=== PATIENT | male | born 1975 | race Two or more races ===

== ENCOUNTER 2024-09-16 09:11 | Inpatient (IN) | payer MEDICAID, SELFPAY ==
[2024-09-16] VITALS (14 sets, daily range): BP systolic 98–127; BP diastolic 65–79; PULSE 65–89; RESP 12–21; TEMP 35.9–37.1; O2SAT 93–98; BMI 23.5
--- NOTE | 2024-09-16 09:35 | EKG_ITS ---
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: : 1975 Requested By: ED Temporary Provider Order Number: [id number] Reading MD: ED Temporary Provider Measurements Intervals [place] Rate: 82 P: 54 HI: 193 QRS: 58 QRSD: 92 T: 34 QT: 360 QTc: 423 Interpretive Statements SINUS RHYTHM ST ELEVATION, CONSIDER ANTERIOR INJURY [MARKED ST ELEVATION W/O NORMALLY INFLECTED T WAVE IN V2-V5] ST ELEVATION, CONSIDER INFERIOR INJURY [MARKED ST ELEVATION W/O NORMALLY INFLECTED T WAVE IN II/aVF] ACUTE [place] Compared to ECG 09/16/2022 21:59:00 ST (T wave) deviation now present Myocardial infarct finding now present First degree AV block no longer present Early repolarization no longer present /store/S0/[id number]/[id number].pdf
--- NOTE | 2024-09-16 09:47 | PD.EDRME ---
Rapid Medical Screening Exam RME Arrival date/time: 09/16/24 09:11 48-year-old male with a history of hyperlipidemia, type 2 diabetes, hypertension presents to the emergency room with a chief complaint of 10 out of 10 sternal chest pain that radiates to the left shoulder x 1 day. I have greeted and performed a focused initial assessment of this patient. A comprehensive ED assessment and evaluation of the patient, analysis of all test results, and completion of the medical decision making process will be conducted by additional ED providers. Chief Complaint: Chest Pain Vital signs reviewed by provider: Yes
--- NOTE | 2024-09-16 09:56 | EDNOTE_ITS ---
ED Chest Pain RME/HPI General Chief Complaint: Chest Pain Stated Complaint: CHEST PAIN Time Seen by Provider: 09/16/24 09:51 Arrival date/time: 09/16/24 09:11 RME / HPI RME / HPI narrative: 09/16/24 09:11 48-year-old male with a history of hyperlipidemia, type 2 diabetes, hypertension presents to the emergency room with a chief complaint of 10 out of 10 sternal chest pain that radiates to the left shoulder x 1 day. I have greeted and performed a focused initial assessment of this patient. A comprehensive ED assessment and evaluation of the patient, analysis of all test results, and completion of the medical decision making process will be conducted by additional ED providers. This section includes all my notes and documentations, including HPI, PE, and ED course.? Rigo Haro MD HPI: 48 year old male with history of diabetes presents to the ED for evaluation of chest pain that began yesterday and progressively worsening. Described as aching in sensation that is located most to the center and left side of chest, rating 9/10 today. Accompanied by feeling short of breath. Reportedly had consulted his PCP in [place] yesterday and while in office had an EKG performed and sent to [facility]. States while at the [facility] he had labs and EKG performed however left before receiving any results. Denies any history of MS. Denies fevers, chills, sweats, abdominal pain, n/v. No other complaints. ROS: All negative except as documented in HPI. Physical Exam: General:? Alert and oriented.? No acute distress when remaining still.?? Eyes:? Conjunctivae and lids clear.? ENT:? No nasal congestion.? Neck:? Supple.? Heart:? RRR.? Lungs:? No respiratory distress.? Good air movement.? No rhonchi, wheezing, rales.?? Abdomen:? Soft and nontender.?? Legs:? No clubbing, cyanosis, edema.? Skin:? Warm and dry.?? Neuro:? Alert and oriented X 3.?? I reviewed all diagnostic test results. My interpretation of the EKG is?STEMI (confirmed by Dr. Mendenhall). Blood tests unremarkable. At this point, diagnoses include?STEMI. Treatment here included?Plavix and topical NTG and morphine and Lovenox. Patient took ASA 81 mg X 4 at home today. He remained stable. I discussed the case with our environmental conservation officer and our hospitalist.? About the presentation and exam and diagnostics and treatments here.? And need of further care in the hospital.? Will accept the patient. Rigo Haro MD Related Data Home Medications ?Medication ?Instructions ?Recorded ?Confirmed Unobtainable 10/12/22 10/12/22 Allergies Allergy/AdvReac Type Severity Reaction Status Date / Time No Known Allergies Allergy Verified 10/12/22 07:18 Review of Systems Review of Systems Systems Reviewed: All systems reviewed, normal except as documented Past Medical History Past Medical History CARDIAC: Positive Cardiac Disorders, Myocardial Infarction, Coronary Artery Disease, Hypercholesterolemia and Hypertension ENDOCRINE: Positive Diabetes Mellitus Type 2 PSYCHO/SOCIAL: Positive Anxiety OTHER HISTORY: Positive Hospitalization Social History SMOKING STATUS: Current some day smoker SUBSTANCE USE: former substance user and crack/cocaine ED Exam Narrative Physical exam: As noted in HPI Course Quality Measures none Orders Category Date Time Status COVID-19 Screening Questionnaire NOW Care 09/16/24 10:01 Active Decision to Admit X1 Care 09/16/24 10:01 Completed EKG (ED ONLY) *Do not use* NOW Care 09/16/24 09:35 Completed Consult to Cardiology Stat Cons 09/16/24 09:58 Ordered CCL heart cath LT ventricle Stat Exams 09/16/24 Ordered EKG (ED Only) Stat Exams 09/16/24 09:35 Draft XR chest 1V portable Stat Exams 09/16/24 09:46 Ordered B-Type Natriuretic Peptide Stat Lab 09/16/24 09:58 Completed CBC Stat Lab 09/16/24 09:58 Completed Comprehensive Metabolic Panel Stat Lab 09/16/24 09:58 Completed Drug Screen,Urine Stat Lab 09/16/24 09:47 Ordered LDH (Lactate Dehydrogenase) Stat Lab 09/16/24 09:58 Completed Magnesium Stat Lab 09/16/24 09:58 Completed Partial Thromboplastin Time Stat Lab 09/16/24 09:58 Completed Prothrombin Time with INR Stat Lab 09/16/24 09:58 Completed Troponin I Stat Lab 09/16/24 09:58 Completed Urinalysis Stat Lab 09/16/24 09:47 Ordered Clopidogrel [Plavix] Med 09/16/24 09:57 Discontinued 300 mg PO X1 ONE Metoprolol Tartrate [Lopressor] Med 09/16/24 09:56 Discontinued 25 mg PO X1 ONE Morphine Inj Med 09/16/24 09:57 Discontinued 2 mg IVP X1 ONE Morphine Inj Med 09/16/24 09:56 Discontinued 4 mg IVP X1 ONE Nitroglycerin Oint 2% [Nitro-paste Oint 2%] Med 09/16/24 09:56 Discontinued 1 inch TOP X1 ONE Vital Signs Vital signs: Vital Signs Temperature 98.7 F 09/16/24 09:59 Pulse Rate 82 09/16/24 09:59 Respiratory Rate 18 09/16/24 09:59 Blood Pressure 127/79 09/16/24 09:59 Pulse Oximetry (%) 95 09/16/24 09:59 Oxygen Delivery Method Room Air 09/16/24 09:59 Pulse ox is 95% on room air which is adequate. Chest Pain MDM Narrative MDM Narrative:: Patricia Thomas am scribing for and in the presence of Dr. Haro. Patient data External records reviewed:: [facility] previous records (I reviewed ED visit on 01/01/2023 for chest pain ) and EMS form Clinical information provided by:: patient Social determinants that could affect healthcare access:: none Patient has the following chronic illnesses:: Diabetes How is presenting disease/condition affected by chronic disease/condition?: exacerbated by Evaluation data The following diagnostics were reviewed and interpreted by me:: lab results and EKG tracing(s) (My interpretation of the EKG is: Sinus rhythm (82 bpm) with STEMI. Rigo Haro MD) Lab and/or radiology exams considered but not ordered:: None Interpretation Summary: ST elevation MS Medications / Prescriptions Medications or Prescriptions considered but not ordered:: None Medication administrations:: Medication Administration History Acetaminophen (Acetaminophen 325 Mg Tablet) 650 mg PO Q6H PRN PRN Reason: PAIN OR FEVER > 101 Stop: 10/16/24 10:01 Ondansetron HCl (Ondansetron Inj 2 Mg/Ml Inj 2 Ml) 4 mg IV Q6H PRN; Protocol PRN Reason: NAUSEA OR VOMITING Stop: 10/16/24 10:01 Sennosides (Senna Tablet) 1 tab PO QDAY PRN; Protocol PRN Reason: constipation Stop: 10/16/24 10:01 Discontinued Medications Atropine Sulfate (Atropine Sulf Inj 1 Mg/Ml Vial) Confirm Administered Dose 1 mg .ROUTE .STK-MED ONE Stop: 09/16/24 10:10 Bivalirudin (Bivalirudin Inj 250 Mg Vial) Confirm Administered Dose 250 mg IV .STK-MED ONE Stop: 09/16/24 10:11 Clopidogrel Bisulfate (Clopidogrel Bisulfate 75 Mg Tablet) 300 mg PO X1 ONE Stop: 09/16/24 09:58 Epinephrine HCl (Epinephrine Inj 0.1 Mg/Ml Syringe 10ml) Confirm Administered Dose 1 mg .ROUTE .STK-MED ONE Stop: 09/16/24 10:12 Fentanyl Citrate (Fentanyl Cit Inj 50 Mcg/Ml Amp 2ml) Confirm Administered Dose 100 mcg .ROUTE .[facility]-MED ONE Stop: 09/16/24 10:10 Flumazenil (Flumazenil Inj 0.1 Mg/Ml Vial 10 Ml) Confirm Administered Dose 1 mg .ROUTE .ST-MED ONE Stop: 09/16/24 10:11 Heparin Sodium (Porcine) (Heparin Sod Inj 1000 Unit/Ml Vial 10 Ml) Confirm Administered Dose 20,000 unit .ROUTE .ST-MED ONE Stop: 09/16/24 10:11 Sterile Water (Sterile Water) Confirm Administered Dose 10 mls @ ud .ROUTE .[facility]- MED ONE Stop: 09/16/24 10:11 Nitroglycerin/Dextrose (Nitroglycerin In D5w Ivpb) Confirm Administered Dose 50 mg in 250 mls @ ud IV .ST-MED ONE Stop: 09/16/24 10:12 Lidocaine HCl (Lidocaine Inj Pf 1% 30 Ml Vial) Confirm Administered Dose 30 ml .ROUTE .ST-MED ONE Stop: 09/16/24 10:11 Metoprolol Tartrate (Metoprolol Tartrate 25 Mg Tablet) 25 mg PO X1 ONE Stop: 09/16/24 09:57 Last Admin: 09/16/24 10:06 Dose: 25 mg Documented By: SUZIE Midazolam HCl (Midazolam Inj 1 Mg/Ml Vial 2 Ml) Confirm Administered Dose 2 mg .ROUTE .STK-MED ONE Stop: 09/16/24 10:10 Morphine Sulfate (Morphine Sulf Inj 10 Mg/Ml Vial) 4 mg IVP X1 ONE Stop: 09/16/24 09:57 Morphine Sulfate (Morphine Sulf Inj 10 Mg/Ml Vial) 2 mg IVP X1 ONE Stop: 09/16/24 09:58 Naloxone HCl (Naloxone Inj 0.4 Mg/Ml Vial) Confirm Administered Dose 0.4 mg .ROUTE .STK-MED ONE Stop: 09/16/24 10:10 Nitroglycerin (Nitroglycerin Oint 2% 1 Inch Packet) 1 inch TOP X1 ONE Stop: 09/16/24 09:57 Last Admin: 09/16/24 10:04 Dose: 1 inch Documented By: SUZIE Phenylephrine HCl (Phenylephrine Inj In Ns 100 Mcg/Ml 10 Ml Syringe) Confirm Administered Dose 1,000 mcg .ROUTE .STK-MED ONE Stop: 09/16/24 10:11 Verapamil HCl (Verapamil Inj 2.5 Mg/Ml Vial 2 Ml) Confirm Administered Dose 5 mg .ROUTE .STK-MED ONE Stop: 09/16/24 10:11 Patient given Plavix, Metoprolol, Morphine, Nitro in the ER Consultations Consultation(s) initiated? (list below): Yes Consultation #1 (Physician, Specialty, Details): I spoke with environmental conservation officer Dr. Mendenhall. Time: 09:56 Consultation #2 (Physician, Specialty, Details): I spoke with resident working with Dr. Gomez regarding admission. Discussed patients PMHx, HPI, ED course, exam findings, EKG, and environmental conservation officer recommendation. Time: 10:00 Diagnosis Chest Pain Differential Diagnosis: pneumothorax, stable angina, unstable angina pectoris, atypical chest pain, st elevation myocardial infarction, costochondritis and chest pain Most likely diagnosis given after review of the tests above:: ST elevation MS Admission Indicated Admission indicated?: indicated Explain why admission is indicated or not indicated:: STEMI Admission Request Was there a request for admission?: Yes Admission Attestation Admission request attestation: Discussed case with Hospitalist service regarding admission. Discussed patients ED course, exam findings, labs, and radiology results. The Hospitalist [agrees,declines] to accept the patient for admission. Disposition Plan Disposition Plan: Admit Discharge Plan Plan Patient Disposition: Admit Acute Care w/in Hospital Problem List Clinical Impression: ST elevation (STEMI) myocardial infarction
--- NOTE | 2024-09-16 10:01 | PC.NURSE ---
PT ARRIVES THROUGH TRIAGE [facility], AMBULATORY. REPORTS HE BEGAN HAVING CP YESTERDAY WAS SENT TO [facility] BY HIS PCP, BUT LEFT EARLY PRIOR TO DIAGNOSIS. COMES IN TODAY WITH CONTINUED CP, EKG SHOWED ACUTE IN. PROVIDER AT BEDSIDE
[2024-09-16] MEDS: NITROGLYCERIN OINT 2% 1 INCH PACKET TOP (10:04)
[2024-09-16] MEDS: METOPROLOL TARTRATE 25 MG TABLET PO ×2 (10:06→17:57)
--- NOTE | 2024-09-16 10:08 | PC.NURSE ---
Patient taken to laborer car barn.
[2024-09-16 10:11] LABS: Basophils % (Auto) 1 % (0-2.5); Eosinophils # (Auto) 0.2 Thou/mm3 (0.0-0.5); Eosinophils % (Auto) 4 % (0-10); Hematocrit 42.7 % (41.0-53.0); Immature Granulocytes % (Auto) 0 % (0-0); Immature Granulocytes Auto 0.01 Thou/mm3 (0.00-0.00); Lymphocytes # (Auto) 1.7 Thou/mm3 (1.0-4.8); Lymphocytes % (Auto) 27 % (10-50); Mean Corpuscular HGB Conc 32.8 g/dl (31.0-37.0); Mean Corpuscular Hemoglobin 27.2 pg (25.0-35.0); Mean Corpuscular Volume 83 fL (80-100); Monocytes # (Auto) 0.4 Thou/mm3 (0.0-0.8); Monocytes % (Auto) 6 % (0-12); Neutrophils % (Auto) 62 % (37-80); Nucleated Red Blood Cell % 0 /100 WBC (0); Platelet Count 320 Thou/mm3 (140-440); RDW Standard Deviation 40.5 fL (35.1-43.9); Red Blood Count 5.14 Miln/mm3 (4.50-5.90); White Blood Count 6.4 Thou/mm3 (3.8-10.6)
[2024-09-16 10:26] LABS: Partial Thromboplastin Time 26.5 Seconds (22.0-36.0); Prothrombin Time 10.5 Seconds (9.0-12.2)
[2024-09-16 10:40] LABS: Alanine Aminotransferase 12 U/L (10-49); Albumin, Serum 4.9 gm/dL (3.5-5.0); Albumin/Globulin Ratio 1.7 (1.2-2.2); Alkaline Phosphatase 105 U/L (46-116); Anion Gap 9 (7-16); Aspartate Amino Transferase 11 U/L (0-34); BUN/Creatinine Ratio 41 Ratio (12-20); Bilirubin,Total 0.3 mg/dL (0.3-1.2); Blood Urea Nitrogen 33 mg/dL (9-23); Calcium 10.3 mg/dL (8.3-10.6); Calcium (Corrected) 10.3 mg/dL (8.5-10.1); Carbon Dioxide 25.4 mMol/L (20.0-31.0); Chloride 104 mMol/L (98-107); Creatinine (Component) 0.8 mg/dL (0.6-1.3); Estimated Creatinine Clearance 134.1 mL/min (>60); Globulin 2.9 gm/dL (2.3-3.5); Glucose 110 mg/dL (74-106); LDH (Lactate Dehydrogenase) 170 U/L (120-246); Magnesium 2.1 mg/dL (1.6-2.6); Osmolality,Calculated 283 (275-295); Potassium 4.1 mMol/L (3.4-5.1); Sodium 138 mMol/L (136-145); Total Protein 7.8 gm/dL (5.7-8.2); Troponin I < 0.020 ng/mL (0.0-0.045); eGFR > 60 See Note
--- NOTE | 2024-09-16 10:41 | ESOP_ITS ---
Cardiac Cath Procedure Procedure Narrative date of the procedure 09/16/2024 Title of the procedure 1. Left heart catheterization 2. Left coronary angiogram 3. Right coronary angiogram 4. Left ventriculogram 5. Conscious sedation 6. Radiographic interpretation supervision 7. Ultrasound guidence for Right radial access Indication for the procedure This is a 48-year-old gentleman with past medical history of borderline hypertension Patient was seen in the emergency room with chest pain Initial EKG shows ST elevations in the inferior lead STEMI alert was called patient was taken to the Occupational Therapy Professor Procedure This is done in the cardiac lab under continuous electrocardiographic monitoring Intermittent blood pressure monitoring right radial arterial access obtained using modified Seldinger technique 6 Romanian radial sheath was placed under ultrasound guidence TIG catheter was used for selective injection of the Left coronary artery TIG cather was used for selective injection of the Right coroanry artery TIG cather was used for LV gram Findings Hemodynamics Left ventricular systolic function is 55% Left ventricular end-diastolic pressure is 18 mmHg Gradient across the aortic valve is 0 mm gradient Coronary anatomy Right dominance Left main coronary artery is normal Left anterior descending artery is mid segment shows possible myocardial bridging Diagonal vessel is luminal irregularities Left circumflex artery is normal Obtuse marginal vessel is luminal regularities Right coronary artery is normal Posterior descending artery is normal Conclusion No significant coronary lesion Continue medical management Recommendation Medical management to continue
[2024-09-16 10:48] LABS: B-Type Natriuretic Peptide < 20 pg/mL (0-100)
--- NOTE | 2024-09-16 14:17 | ESHP_ITS ---
<Statement entered by Duarte Berger MD - 09/16/24 15:51> Patient Underweight cath, by Dr Mendenhall which showed mid segment possible mycardial bridging . will continue current treatment as per cardiology , stable to DC tomorrow. I discussed with and supervised my co-resident involved in the care of this patient. I agree with the assessment and plan as documented above. Duarte Berger,PGY-3 Disclaimer: Despite multiple revisions, due to the dictation software being used, the document below may not be free of grammatical errors including phonetic/typographic errors. However, this does not deter from our commitment to providing health care in the patient's best interest in mind. Documentation for date of: 09/16/24 HPI History of Present Illness Chief complaint: chest pain History of present illness: 48-year-old male with past medical history of hypertension, DM2, prior NV (2018), prior cocaine use, and hyperlipidemia was admitted to hospital on 09/16/2024 after coming to the ED with chest pain and EKG showing ST elevations therefore require him to go straight to heart cath. On assessment patient stated that he chest pain started yesterday and that he had shortness of breath as well. He described this chest pain as sharp and localized on the left side chest, but did not radiate anywhere. He stated he took 4 chewable aspirin during that time and then headed to a health clinic in his hometown will later on referred him to the ER. Patient went to the ER in [place] and he had a misunderstanding as they told him to wait in the lobby, but patient left thinking that he was already done with fall lab work and testing. He stated that again his chest pain continued this morning therefore he decided to call the ambulance and came to the ER. Patient stated that before everything started he was having a burger around 10 AM yesterday and that the woman who prepares his burger had put something on his program which he thinks was a drug. He states that after eating the burger he felt very anxious as well as with uncontrollable rage and therefore he went to the health clinic at this time. He denied taking any cocaine or any other drugs in the past few years. He also mentioned that he has had to prior heart caths in the past. Patient was taken to the heart cath directly from the ER given that his EKG did not show ST elevations in multiple leads. Heart cath did not reveal any occlusion and only showed LAD myocardial bridging. ED course: Initially patient came in normotensive and afebrile. Initial labs were unremarkable. Initial imaging included EKG which showed ST elevation in lead II, aVF, V5 and V6. PMH: As above Social Hx: Admits to smoking around 1/4 pack/day, denies any drugs, admits social drinking Surgical Hx: None as per patient FMH: States that he has multiple half-brothers who have had MIs at the age of 60s, but no other relevant medical history. Review of Systems Review of Systems Narrative Review of Systems: Constitutional: Denies sweats, Denies weight loss/gain, Denies fever, Denies chills. HEENT: Denies hearing loss, Denies ear pain, Denies postnasal drip, Denies double vision, Denies blurry vision. Respiratory: Admits shortness of breath, Denies cough, Denies wheezing. Cardiovascular: Admits chest pain, Denies palpitations, Denies sudden loss of consciousness. GI: Denies blood in stool, Denies constipation, Denies abdominal pain, Denies difficulty swallowing, Denies nausea or vomit. : Denies urinary incontinence, Denies pain while urinating, Denies increased urinary frequency. MSK: Denies joint pain, Denies joint swelling, Denies numbness. Skin: Denies rash, Denies itching, Denies easy bruising. Neuro: Denies headaches, Denies dizziness, Denies seizures. Past Medical History Past Medical History CARDIAC: Positive Cardiac Disorders, Myocardial Infarction, Coronary Artery Disease, Hypercholesterolemia and Hypertension ENDOCRINE: Positive Diabetes Mellitus Type 2 PSYCHO/SOCIAL: Positive Anxiety OTHER HISTORY: Positive Hospitalization Social History SMOKING STATUS: Current some day smoker SUBSTANCE USE: former substance user and crack/cocaine Exam Vital Signs Temp Pulse Resp BP Pulse Ox O2 Del Method 97.3 F 70 17 106/73 97 Room Air 09/16/24 13:49 09/16/24 13:49 09/16/24 13:49 09/16/24 13:49 09/16/24 13:49 09/16/24 13:49 Narrative Exam General: A/O x3, no acute distress, thin Eyes: PERRL, EOMI. Anicteric, vision grossly intact. Ears: No ear pain, no ear discharge, Hearing grossly intact. Nose: No nasal discharge. Mouth/Throat: Dry mucous membranes, no redness, no lesions. Neck: Neck supple, non-tender, no cervical lymphadenopathy. Lungs: Clear SOL to auscultation and percussion, No accessory muscle use. Cardio: Normal S1/S2, regular rhythm, no murmurs, no JVD Abdomen: Soft, non-tender, no palpable masses, peristalsis present, no guarding or rebound. Extremities: Symmetrical, no significant deformities, no peripheral edema , non-tender, peripheral pulses presents. Skin: No rashes, no lesions, warm to touch. Neuro: No focal neurological deficits. motor and sensory intact Psych: Cooperative, appropriate mood and effect. Results: Labs 09/17/24 04:40 09/17/24 04:40 Labs: Short CBC 09/16/24 Range/Units 09:58 WBC 6.4 (3.8-10.6) Thou/mm3 Hgb 14.0 (13.5-16.0) g/dL Hct 42.7 (41.0-53.0) % Plt Count 320 (140-440) Thou/mm3 BMP 09/16/24 09:58 Sodium 138 Potassium 4.1 Chloride 104 Carbon Dioxide 25.4 BUN 33 H Creatinine 0.8 Glucose 110 H Calcium 10.3 Cardiac Enzymes 09/16/24 Range/Units 09:58 Troponin I < 0.020 (0.0-0.045) ng/mL Liver Function 09/16/24 Range/Units 09:58 Total Bilirubin 0.3 (0.3-1.2) mg/dL AST 11 (0-34) U/L ALT 12 (10-49) U/L Alkaline Phosphatase 105 (46-116) U/L Albumin 4.9 (3.5-5.0) gm/dL Quality Measures Quality Measures none Medications Home Medications and Allergies Home Medications ?Medication ?Instructions ?Recorded ?Confirmed ?Type Unobtainable 10/12/22 10/12/22 History Allergies Allergy/AdvReac Type Severity Reaction Status Date / Time No Known Allergies Allergy Verified 10/12/22 07:18 Visit Medications Acetaminophen (Acetaminophen 325 Mg Tablet) 650 mg PO Q6H PRN PRN Reason: PAIN OR FEVER > 101 Stop: 10/16/24 10:01 Ondansetron HCl (Ondansetron Inj 2 Mg/Ml Inj 2 Ml) 4 mg IV Q6H PRN; Protocol PRN Reason: NAUSEA OR VOMITING Stop: 10/16/24 10:01 Sennosides (Senna Tablet) 1 tab PO QDAY PRN; Protocol PRN Reason: constipation Stop: 10/16/24 10:01 Discontinued Medications Clopidogrel Bisulfate (Clopidogrel Bisulfate 75 Mg Tablet) 300 mg PO X1 ONE Stop: 09/16/24 09:58 Last Admin: 09/16/24 11:57 Dose: Not Given Metoprolol Tartrate (Metoprolol Tartrate 25 Mg Tablet) 25 mg PO X1 ONE Stop: 09/16/24 09:57 Last Admin: 09/16/24 10:06 Dose: 25 mg Morphine Sulfate (Morphine Sulf Inj 10 Mg/Ml Vial) 4 mg IVP X1 ONE Stop: 09/16/24 09:57 Morphine Sulfate (Morphine Sulf Inj 10 Mg/Ml Vial) 2 mg IVP X1 ONE Stop: 09/16/24 09:58 Last Admin: 09/16/24 11:57 Dose: Not Given Nitroglycerin (Nitroglycerin Oint 2% 1 Inch Packet) 1 inch TOP X1 ONE Stop: 09/16/24 09:57 Last Admin: 09/16/24 10:04 Dose: 1 inch Assessment & Plan Plan 48-year-old male with past medical history of hypertension, DM2, prior NV (2018), prior cocaine use, and hyperlipidemia was admitted to hospital on 09/16/2024 for STEMI. #STEMI rule out #Hx of NV ?Patient came in with complaints of chest pain that started yesterday after apparently ingesting an unknown substance. ?DDx NV versus vasospasm ? EKG that showed ST elevations in lead II, aVF, V5 and V6. ?Patient's troponins were negative at less than 0.02 ?Heart cath done today by production line technician revealed no coronary artery disease and only revealed LAD myocardial bridging. ?Patient received loading dose of Plavix in the ED as well as morphine and nitroglycerin. Plan: ?Order U tox ?Will observe patient for now as there is no need for any aspirin or Plavix at this time and plan for possible discharge in the next 24 hours. ?Cardiology consulted and appreciate recommendations ? Will continue to monitor #Hx of DM2 ? Glucose 110 today Plan: ?A1c for morning ? ISS ? Accu-Cheks and hypokalemia protocol ordered ? Will continue to monitor #Hx of hypertension ? Patient's blood pressure has been well-controlled today ? Will not start any antihypertensive medication at this time Disposition: Patient admitted to telemetry post heart cath, possible DC tomorrow . Diet: Cardiac/low carb GI prophylaxis: not indicated DVT prophylaxis: SCDs Code: Full Case disclosed with Attending Dr. Fowler and My senior Dr. Berger PGY3. Jose Parker PGY1 Attending Provider Attestation/Addendum I have examined the patient, reviewed labs and imaging findings, discussed the case with the resident(s), and reviewed entered orders. I agree with the plan of care as outlined in this note, with these additional summaries/recommendations: Patient seen at bedside. Patient presented to [facility] emergency department on 09/16/2024 with chief complaint of chest pain. In the emergency department, EKG was obtained which revealed ST elevation in leads II and aVF as well as lateral leads. Heart alert was called in the emergency department, cardiology was consulted and patient was taken immediately to Chief Substation Operator. Heart catheterization did not reveal any significant stenosis but did reveal possible LAD myocardial bridging. EF 55%. Etiology for chest pain secondary to myocardial bridging versus noncardiac versus possible coronary vasospasm. Patient does have history of remote substance use and urine toxicology pending. Patient was given antiplatelet therapy in the emergency room although since no significant stenosis we will discontinue. We will monitor patient on telemetry for any further episodes of chest pain. If no further episodes and morning labs are stable then patient can likely be discharged in the next 24 to 48 hours. Patient updated on the plan and in agreement. Dr. Gomez
--- NOTE | 2024-09-16 17:37 | EKG_ITS ---
[facility] Test Date: 2024-09-16 Pat Name: KATHIA MENDIETA Department: Room: S263A Gender: Male Strategic Planning Director: [id number] : 1975 Requested By: Ramu Cunha Order Number: [id number] Reading MD: Ramu Cunha Measurements Intervals [place] Rate: 75 P: 56 [place]: 222 QRS: 71 QRSD: 104 T: 55 QT: 388 QTc: 435 Interpretive Statements SINUS RHYTHM WITH FIRST DEGREE AV BLOCK EARLY REPOLARIZATION Compared to ECG 09/16/2024 09:44:55 First degree AV block now present Early repolarization now present ST (T wave) deviation no longer present Myocardial infarct finding no longer present /[id number]
--- NOTE | 2024-09-16 17:38 | ECHO_ITS ---
Transthoracic Echo Report Ht (in): 74 Wt (lb): 182 Exam Location: Portable Status: Inpatient Lace Burn Out Tender: Shari Arevalo Indications: Procedure Performed: BP: 93 / 67 HR: 71 Technical Quality: Fair MEASUREMENTS (Male / Female) Normal Values 2D ECHO LV Diastolic Diameter PLAX 4.1 cm 4.2 - 5.9 / 3.9 - 5.3 cm LV Systolic Diameter PLAX 3.0 cm IVS Diastolic Thickness 1.0 cm 0.6 - 1.0 / 0.6 - 0.9 cm LVPW Diastolic Thickness 1.0 cm 0.6 - 1.0 / 0.6 - 0.9 cm LV Relative Wall Thickness 0.5 LVOT Diameter 2.1 cm LA Volume Index 22.9 cm?/m? 16 - 28 cm?/m? Ascending Aorta Diameter 3.2 cm M-MODE Aortic Root Diameter MM 3.3 cm LA Systolic Diameter MM 3.8 cm LA Ao Ratio MM 1.2 AV Cusp Separation MM 2.1 cm DOPPLER AV Peak Velocity 118.0 cm/s AV Peak Gradient 5.6 mmHg AV Mean Gradient 3.0 mmHg AV Velocity Time Integral 28.1 cm LVOT Peak Velocity 100.0 cm/s LVOT Peak Gradient 4.0 mmHg LVOT Velocity Time Integral 24.2 cm LVOT Cardiac Index 2866.6 cm?/min?m? AV Area Cont Eq vti 3.0 cm? AV Area Cont Eq pk 2.9 cm? MV Peak Velocity 87.5 cm/s MV Peak Gradient 3.1 mmHg MV Mean Velocity 59.8 cm/s MV Mean Gradient 2.0 mmHg MV Area PHT 3.5 cm? Mitral E Point Velocity 73.2 cm/s Mitral A Point Velocity 63.1 cm/s Mitral E to A Ratio 1.2 LV E' Lateral Velocity 14.4 cm/s Mitral E to LV E' Lateral Ratio 5.1 LV E' Septal Velocity 8.8 cm/s Mitral E to LV E' Septal Ratio 8.3 FINDINGS Left Ventricle Normal left ventricular size, wall thickness, systolic function with no obvious regional wall motion abnormalities. The ejection fraction is visually estimated at 50-55 %. Right Ventricle The right ventricle is normal in size and systolic function. Left Atrium The left atrium is normal by two-dimensional, color flow and Doppler imaging with no structural abnormalities, no thrombus formation present. Right Atrium The right atrium is normal by two-dimensional imaging, color flow and Doppler imaging with no struct ural abnormalities, no thrombus formation present. Atrial Septum The interatrial septum appears normal with no evidence of a shunt. Aorta The aorta is normal by two-dimensional, color flow and Doppler interrogation. Mitral Valve The mitral valve is normal by two-dimensional, color flow and Doppler interrogation. There is trace mitral valve regurgitation. Aortic Valve The aortic valve is trileaflet and normal by two-dimensional, color flow and Doppler interrogation. There is no significant aortic valve regurgitation. Tricuspid Valve The tricuspid valve is normal by two-dimensional, color flow and Doppler interrogation. There is tra ce tricuspid valve regurgitation. Pulmonic Valve There is no significant pulmonic valve regurgitation. Vessels The pulmonary artery appears normal. The inferior vena cava pulmonary and hepatic veins appear melissa l. Pericardium The pericardium is normal by two-dimensional imaging. There is no significant pericardial effusion. CONCLUSIONS Indication: Chest pain Normal LV size and function. Estimated EF 55-60%. Normal diastolic function. Normal RV size and function. Trace MR, TR. Yrn Prater (Electronically Signed) Final Date: 17 September 2024 18:45
--- NOTE | 2024-09-16 17:38 | XR_ITS ---
Examination: AP chest single view Technique one AP portable upright chest single view Exam date and time: September 16, 2024 1749 hours Comparison January 01, 2023 INDICATIONS: Chest pain today. FINDINGS: Normal heart size No pneumonia or pulmonary edema Moderate osteopenia IMPRESSION: No interval pneumonia or pulmonary edema
[2024-09-16] MEDS: MORPHINE SULF INJ 10 MG/ML VIAL 2 MG IVP (17:57)
--- NOTE | 2024-09-16 18:05 | PD.RESEVENT ---
Documentation for date of: 09/16/24 Event Note Event Note: Around 5:40 PM rapid response team was called because of chest pain 06/18. He reported the pain was similar to what he presented with, but was not radiating as before. His pain was pressure type in the retrosternal area. Boiler Operators Supervisor Dr. Mendenhall was contacted by phone, and he recommended morphine, after which the pain started improving. The patient was also started on metoprolol to tartrate 25 mg twice daily. EKG was still significant for STEMI similar to 1 done during presentation. Chest x-ray was clear as interpreted by me. CMP, electrolytes and troponins were ordered. Will follow-up on labs. The patient was also started on morphine 2 mg every 4 hourly as needed for severe pain. The patient's management plan was discussed with my attending physician MD Alistair Kang MD, PGY2
--- NOTE | 2024-09-16 18:19 | PC.NURSE ---
1540 TANK TRUCK OPERATOR called for left sided non radiating pain to chest, 2 mg morphine given, Chest xray 1V ordered, Metroprolol 25 mg given, EKG ordered. Patients pain in currently 10. Vital signs stable, will continue to monitor.
[2024-09-16 18:30] LABS: Troponin I 0.057 ng/mL (0.0-0.045)
--- NOTE | 2024-09-16 23:19 | PC.RT ---
Responded to Rapid Response EKG done, RT DC post EKG.
[2024-09-17] VITALS (9 sets, daily range): BP systolic 93–124; BP diastolic 59–84; PULSE 69–91; RESP 14–20; TEMP 36–36.3; O2SAT 94–98; BMI 24.8
[2024-09-17 00:38] LABS: Collection Type, Urine Clean Catch; Squamous Epithelial Cell,Urine 0 /hpf (0-5)
[2024-09-17 01:08] LABS: Bilirubin,Urine Negative (Negative); Blood,Urine Negative (Negative); Clarity,Urine Clear (Clear/Hazy); Color,Urine Lt-Yellow (Lt Yel-Yel); Glucose, Urine 4+ (Negative); Ketones,Urine Negative (Negative); Leukocyte Esterase,Urine Negative (Negative); Nitrite,Urine Negative (Negative); PH,Urine 5.5 (5.0-7.0); Protein,Urine Negative (Neg - Trace); RBC,Urine 1 /hpf (0-3); Specific Gravity,Urine 1.044 (1.001-1.035); Urobilinogen,Urine Negative mg/dL (0.0-1.0); WBC,Urine < 1 /hpf (0-5)
[2024-09-17 01:16] LABS: Amphetamine/Methamp Scrn,U Positive (Negative); Barbiturate Screen,Urine Negative (Negative); Benzodiazepines Screen,Urine Positive (Negative); Benzoylecgonine Screen, Ur Negative (Negative); Fentanyl Screen,Urine Positive (Negative); Opiate Screen,Urine Positive (Negative); THC Screen,Urine Negative (Negative)
[2024-09-17 06:16] LABS: Basophils % (Auto) 1 % (0-2.5); Eosinophils # (Auto) 0.2 Thou/mm3 (0.0-0.5); Eosinophils % (Auto) 4 % (0-10); Hematocrit 36.1 % (41.0-53.0); Hemoglobin 12.5 g/dL (13.5-16.0); Immature Granulocytes % (Auto) 0 % (0-0); Immature Granulocytes Auto 0.01 Thou/mm3 (0.00-0.00); Lymphocytes % (Auto) 38 % (10-50); Mean Corpuscular HGB Conc 34.6 g/dl (31.0-37.0); Mean Corpuscular Volume 81 fL (80-100); Monocytes # (Auto) 0.5 Thou/mm3 (0.0-0.8); Monocytes % (Auto) 9 % (0-12); Neutrophils # (Auto) 2.5 Thou/mm3 (1.8-7.7); Neutrophils % (Auto) 49 % (37-80); Nucleated Red Blood Cell % 0 /100 WBC (0); Platelet Count 277 Thou/mm3 (140-440); RDW Standard Deviation 38.5 fL (35.1-43.9); Red Blood Count 4.46 Miln/mm3 (4.50-5.90); White Blood Count 5.2 Thou/mm3 (3.8-10.6)
[2024-09-17 07:02] LABS: Glucose Estimated Average 134 mg/dL (80-131); Hemoglobin A1C 6.3 % Hgb (4.8-6.0)
[2024-09-17 07:16] LABS: Alanine Aminotransferase 9 U/L (10-49); Albumin, Serum 4.1 gm/dL (3.5-5.0); Albumin/Globulin Ratio 1.6 (1.2-2.2); Alkaline Phosphatase 78 U/L (46-116); Anion Gap 7 (7-16); Aspartate Amino Transferase < 8 U/L (0-34); BUN/Creatinine Ratio 36 Ratio (12-20); Bilirubin,Total 0.4 mg/dL (0.3-1.2); Blood Urea Nitrogen 25 mg/dL (9-23); Calcium 9.2 mg/dL (8.3-10.6); Calcium (Corrected) 9.2 mg/dL (8.5-10.1); Carbon Dioxide 26.9 mMol/L (20.0-31.0); Cardiac Risk Estimate 3.8 RATIO (4.0-6.7); Chloride 104 mMol/L (98-107); Cholesterol 130 mg/dL (132-200); Creatinine (Component) 0.7 mg/dL (0.6-1.3); Estimated Creatinine Clearance 153.3 mL/min (>60); Globulin 2.5 gm/dL (2.3-3.5); Glucose 105 mg/dL (74-106); HDL Cholesterol 34 mg/dL (40-60); LDL Cholesterol,Calculated 59 mg/dL (0-130); Osmolality,Calculated 280 (275-295); Phosphorous 4.5 mg/dL (2.4-5.1); Potassium 4.1 mMol/L (3.4-5.1); Sodium 138 mMol/L (136-145); Total Protein 6.6 gm/dL (5.7-8.2); Triglycerides 186 mg/dL (30-150); eGFR > 60 See Note
[2024-09-17] MEDS: MORPHINE SULF INJ 10 MG/ML VIAL 2 MG IVP (12:07)
--- NOTE | 2024-09-17 14:34 | PC.SS ---
Patient is alert/oriented. He resides with his brother. Patient is independent with ADL's. No DME. He was admitted for NStemi. Patient resides in [place] and is expected to return. He states he follows up at the [facility]. They sent him to hospital for cardiac issues. Patient states he's had a referral to see a Cardiolgist 4 months ago but missed appt. Advised to contact primary care physician to re send referral. Patient states his pharmacy is at the [facility] as well. His friend, Dariel, is his alt medical decision maker. His brother is Faroese speaking only and patient did not want him listed. He states his friend will provide information to his brother in the event of any emergency. Patient may be discharged home today if cleared by Cardiology. D/c address: [phone], [place] Patient will need transportation home. Uber/Taxi
--- NOTE | 2024-09-17 14:44 | ESPR_ITS ---
Documentation for date of: 09/17/24 Subjective Subjective Interval history: Patient seen at bedside this morning. Patient had a rapid response later on yesterday afternoon due to chest pain. Cardiology was consulted at this time and he recommended to give patient morphine 2 mg every 4 hour as needed. Patient's echo was taken today, but we are still pending official report. Patient again was complaining of chest pain and morphine was given which improved his symptoms. As per cardiology patient is stable to be discharged home, but will monitor overnight. Started diltiazem 120mg qday. Exam Vital Signs Temp Pulse Resp BP Pulse Ox O2 Del Method 97.3 F 69 20 119/62 98 Room Air 09/17/24 12:00 09/17/24 12:00 09/17/24 12:00 09/17/24 12:00 09/17/24 12:00 09/17/24 12:00 Narrative Exam General: A/O x3, no acute distress, thin Eyes: PERRL, EOMI. Anicteric, vision grossly intact. Ears: No ear pain, no ear discharge, Hearing grossly intact. Nose: No nasal discharge. Mouth/Throat: Dry mucous membranes, no redness, no lesions. Neck: Neck supple, non-tender, no cervical lymphadenopathy. Lungs: Clear SOL to auscultation and percussion, No accessory muscle use. Cardio: Normal S1/S2, regular rhythm, no murmurs, no JVD Abdomen: Soft, non-tender, no palpable masses, peristalsis present, no guarding or rebound. Extremities: Symmetrical, no significant deformities, no peripheral edema , non-tender, peripheral pulses presents. Skin: No rashes, no lesions, warm to touch. Neuro: No focal neurological deficits. motor and sensory intact Psych: Cooperative, appropriate mood and effect. Objective Labs 09/18/24 04:09 09/18/24 04:09 Labs: Laboratory Results - last 24 hr 09/16/24 09/17/24 09/17/24 17:39 00:18 04:40 WBC 5.2 RBC 4.46 L Hgb 12.5 L Hct 36.1 L MCV 81 MCH 28.0 MCHC 34.6 RDW Std Deviation 38.5 Plt Count 277 D Neut % (Auto) 49 Lymph % (Auto) 38 [place] % (Auto) 9 Eos % (Auto) 4 Baso % (Auto) 1 Neut # (Auto) 2.5 Lymph # (Auto) 2.0 [place] # (Auto) 0.5 Eos # (Auto) 0.2 Baso # (Auto) 0.0 Immature Gran # (Auto) 0.01 H Absolute Nucleated RBC 0.00 Immature Gran % 0 Nucleated RBC % 0 Sodium 138 Potassium 4.1 Chloride 104 Carbon Dioxide 26.9 Anion Gap 7 BUN 25 H Creatinine 0.7 Estim Creat Clear Calc 153.3 eGFR > 60 BUN/Creatinine Ratio [address] H Glucose [address] Glu mg/dL 134 H Hemoglobin A1c 6.3 H Calculated Osmolality 280 Calcium 9.2 Corrected Calcium 9.2 Phosphorus 4.5 Magnesium 2.0 Total Bilirubin 0.4 AST < 8 ALT 9 L Alkaline Phosphatase 78 D Troponin I 0.057 H* 0.070 H* Total Protein 6.6 Albumin 4.1 D Globulin 2.5 Albumin/Globulin Ratio 1.6 Triglycerides 186 H Cholesterol 130 L LDL Cholesterol, Calc 59 HDL Cholesterol 34 L Cholesterol/HDL Ratio 3.8 L Ur Collection Type Clean Catch Urine Color Lt-Yellow Urine Clarity Clear Urine pH 5.5 Ur Specific Humphrey 1.044 H Urine Protein Negative Urine Glucose (UA) 4+ A Urine Ketones Negative Urine Blood Negative Urine Nitrite Negative Urine Bilirubin Negative Urine Urobilinogen (Auto) Negative Ur Leukocyte Esterase Negative Urine RBC 1 Urine WBC < 1 Ur Squamous Epith Cells 0 Urine Bacteria None Urine Opiates Screen Positive A Urine Fentanyl Screen Positive A Ur Barbiturates Screen Negative U Amphetamin/Meth Scrn Positive A U Benzodiazepines Scrn Positive A U Cocaine Metab Screen Negative U Marijuana (THC) Screen Negative Quality Measures Quality Measures none Assessment & Plan Assessment Current Active Medications: Generic Name Dose Route Start Last Admin Trade Name Freq PRN Reason Stop Dose Admin Acetaminophen 650 mg 09/17/24 09:32 Acetaminophen 325 Mg Tablet PO 10/16/24 10:01 Q6H PRN PAIN 1-3 OR FEVER > 101 Dextrose 25 ml 09/16/24 15:20 Dextrose 50%-Water Inj 50 Ml Syringe IV 10/16/24 15:19 Q15MIN PRN BG 50-70 responsive npo pt Dextrose 50 ml 09/16/24 15:20 Dextrose 50%-Water Inj 50 Ml Syringe IV 10/16/24 15:19 Q15MIN PRN BG <50 OR BG <70 & pt unresponsive Glucagon 1 mg 09/16/24 15:20 Glucagon Inj 1 Mg Vial IM Q15MIN PRN BG <70, and no IV access Insulin Human Lispro 0 unit 09/17/24 07:30 09/17/24 12:07 Insulin Lispro (Admelog) 1 Unit/0.01 Ml Unit SC 10/17/24 07:29 Not Given ACHS KALIE Protocol Metoprolol Tartrate 25 mg 09/17/24 09:00 09/17/24 08:02 Metoprolol Tartrate 25 Mg Tablet PO 10/17/24 08:59 Not Given BID KALIE Morphine Sulfate 2 mg 09/16/24 18:09 09/17/24 12:07 Morphine Sulf Inj 10 Mg/Ml Vial IVP 09/21/24 18:08 2 mg Q4HR PRN Administration Pain 7-10 Ondansetron HCl 4 mg 09/16/24 10:02 Ondansetron Inj 2 Mg/Ml Inj 2 Ml IV 10/16/24 10:01 Q6H PRN NAUSEA OR VOMITING Protocol Sennosides 1 tab 09/16/24 10:02 Senna Tablet PO 10/16/24 10:01 QDAY PRN constipation Protocol Plan 48-year-old male with past medical history of hypertension, DM2, prior CT (2018), prior cocaine use, and hyperlipidemia was admitted to hospital on 09/16/2024 for STEMI. #STEMI rule out #Hx of CT #Meth use ?Patient came in with complaints of chest pain that started yesterday after apparently ingesting an unknown substance. ?DDx CT versus vasospasm ? EKG that showed ST elevations in lead II, aVF, V5 and V6. 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 ?Patient received loading dose of Plavix in the ED as well as morphine and nitroglycerin. -Utox positive for meth Plan: ?Morphine 2mg q4h -Started diltiazem 120mg qday ?Cardiology consulted and appreciate recommendations ? Will continue to monitor #Hx of DM2 ? Glucose 110 today Plan: ?A1c for morning ? ISS ? Accu-Cheks and hypokalemia protocol ordered ? Will continue to monitor #Hx of hypertension ? Patient's blood pressure has been well-controlled today ? Will not start any antihypertensive medication at this time Disposition: Patient admitted to telemetry post heart cath, possible DC tomorrow . Diet: Cardiac/low carb GI prophylaxis: not indicated DVT prophylaxis: SCDs Code: Full Case disclosed with Attending Dr. Fowler and My senior Dr. Christina MD PGY2 Jose Steinbergpo PGY1 Senior Resident Attestation: The patient still complaints of chest pain. He is on IV morphine. He was given 2.5mg of oral amlodipine and started on Diltiazem Cd 120 mg daily. He will be discharged with this medication if his vitals are stable tomorrow. I discussed with and supervised the quality internship physician involved in the care of this patient. I personally saw and examined the patient and discussed the assessment and plan with the entire medicine team, including my attending. I agree with the assessment and plan as documented above. Alistair Vasquez MD PGY2 Internal Medicine Attending Provider Attestation/Addendum I have examined the patient, reviewed labs and imaging findings, discussed the case with the resident(s), and reviewed entered orders. I agree with the plan of care as outlined in this note, with these additional summaries/recommendations: Patient seen at bedside. Overnight patient had rapid response for chest pain and received IV morphine with resolution. Again today patient had episode of severe chest pain requiring IV morphine. Patient will remain hospitalized for intractable pain and we will continue to monitor. Patient presented to [facility] emergency department on 09/16/2024 with chief complaint of chest pain. In the emergency department, EKG was obtained which revealed ST elevation in leads II and aVF as well as lateral leads. Heart alert was called in the emergency department, cardiology was consulted and patient was taken immediately to [facility]. Heart catheterization did not reveal any significant stenosis but did reveal possible LAD myocardial bridging. EF 55%. Etiology for chest pain secondary to myocardial bridging versus noncardiac versus possible coronary vasospasm. Patient's urine toxicology was positive for methamphetamines and counseled on cessation. Patient was given antiplatelet therapy in the emergency room although since no significant stenosis we will discontinue. We will monitor patient on telemetry for any further episodes of chest pain. If no further episodes and morning labs are stable then patient can likely be discharged in the next 24 to 48 hours. Echocardiogram pending. Patient updated on the plan and in agreement. Dr. Gomez
[2024-09-17] MEDS: amLODIPine BESYLATE 2.5 MG TABLET PO (16:05)
[2024-09-18] VITALS: BP 118/82; PULSE 74; PULSE 77; RESP 18; TEMP 36.6; O2SAT 94
[2024-09-18 04:00] VITALS: BP 100/61; PULSE 76; RESP 16; TEMP 36.4; O2SAT 96
[2024-09-18 05:46] VITALS: BMI 24.8
[2024-09-18 05:47] LABS: Basophils % (Auto) 0 % (0-2.5); Eosinophils # (Auto) 0.2 Thou/mm3 (0.0-0.5); Eosinophils % (Auto) 3 % (0-10); Hematocrit 37.7 % (41.0-53.0); Immature Granulocytes % (Auto) 0 % (0-0); Immature Granulocytes Auto 0.01 Thou/mm3 (0.00-0.00); Lymphocytes # (Auto) 1.7 Thou/mm3 (1.0-4.8); Lymphocytes % (Auto) 30 % (10-50); Mean Corpuscular HGB Conc 34.5 g/dl (31.0-37.0); Mean Corpuscular Hemoglobin 27.8 pg (25.0-35.0); Mean Corpuscular Volume 81 fL (80-100); Monocytes # (Auto) 0.4 Thou/mm3 (0.0-0.8); Monocytes % (Auto) 7 % (0-12); Neutrophils # (Auto) 3.4 Thou/mm3 (1.8-7.7); Neutrophils % (Auto) 59 % (37-80); Nucleated Red Blood Cell % 0 /100 WBC (0); Platelet Count 273 Thou/mm3 (140-440); Red Blood Count 4.67 Miln/mm3 (4.50-5.90); White Blood Count 5.7 Thou/mm3 (3.8-10.6)
[2024-09-18 06:21] LABS: Alanine Aminotransferase 10 U/L (10-49); Albumin, Serum 4.2 gm/dL (3.5-5.0); Albumin/Globulin Ratio 1.6 (1.2-2.2); Alkaline Phosphatase 76 U/L (46-116); Anion Gap 7 (7-16); Aspartate Amino Transferase 10 U/L (0-34); BUN/Creatinine Ratio 29 Ratio (12-20); Bilirubin,Total 0.4 mg/dL (0.3-1.2); Blood Urea Nitrogen 23 mg/dL (9-23); Calcium 9.3 mg/dL (8.3-10.6); Calcium (Corrected) 9.3 mg/dL (8.5-10.1); Carbon Dioxide 27.5 mMol/L (20.0-31.0); Chloride 104 mMol/L (98-107); Creatinine (Component) 0.8 mg/dL (0.6-1.3); Estimated Creatinine Clearance 134.1 mL/min (>60); Globulin 2.6 gm/dL (2.3-3.5); Glucose 143 mg/dL (74-106); Osmolality,Calculated 281 (275-295); Potassium 3.8 mMol/L (3.4-5.1); Sodium 138 mMol/L (136-145); Total Protein 6.8 gm/dL (5.7-8.2); eGFR > 60 See Note
[2024-09-18] MEDS: POTASSIUM CHLORIDE 20 mEq TABCR 40 MEQ PO (07:47)
[2024-09-18 08:00] VITALS: BP 93/62; PULSE 75; RESP 16; TEMP 36.1; O2SAT 95
[2024-09-18 08:37] VITALS: BP 111/76; PULSE 72
[2024-09-18] MEDS: DILTIAZEM CD 120 MG CAPCR PO (08:37)
[2024-09-18 10:00] VITALS: BP 107/68; PULSE 75
[2024-09-18 11:22] VITALS: BP 104/69; PULSE 87; RESP 16; TEMP 36.1; O2SAT 97
--- NOTE | 2024-09-18 13:53 | ESDS_ITS ---
<Statement entered by Duarte Berger MD - 09/18/24 16:30> I discussed with and supervised my co-resident involved in the care of this patient. I agree with the assessment and plan as documented above. Duarte Berger,PGY-3 Disclaimer: Despite multiple revisions, due to the dictation software being used, the document below may not be free of grammatical errors including phonetic/typographic errors. However, this does not deter from our commitment to providing health care in the patient's best interest in mind. Planned Discharge Date 09/18/24 DS: Providers Provider Date of admission: 09/16/24 10:02 Primary care physician: Physician No Primary/Family Admitting Provider: Horace Gomez MD Attending Provider on Admission: Horace Gomez MD Consults: 09/16/24 09:58 Consult to Cardiology Stat Comment: Consulting Provider: Willis Mendenhall Instructions: STEMI 09/16/24 14:36 Referral Respiratory Therapy Routine Comment: Attending Provider on DC: Horace Gomez MD Discharging Provider: Horace Gomez MD DS: Diagnosis Problem List Completed Was Problem List Reviewed/Reconciled?: Yes Hospital Course Hospital Course Hospital course: 48-year-old male with past medical history of hypertension, DM2, prior [place] (2018), prior cocaine use, and hyperlipidemia was admitted to hospital on 09/16/2024 for STEMI ruled out. Patient came into the ED with complaints of chest pain. Initially patient came in normotensive and afebrile. Initial labs were unremarkable. Initial imaging included EKG which showed ST elevation in lead II, aVF, V5 and V6. Patient was taken to the heart cath directly from the ER given that his EKG did not show ST elevations in multiple leads. Heart cath did not reveal any occlusion and only showed possible LAD myocardial bridging.Patient also had a chest x-ray which was unremarkable and U tox was positive for meth. Later on the evening of the same day of admission patient arrived response called again due to chest pain and during this time concrete batch plant operator was called stated to give the patient morphine 2 mg every 4 hours as needed. EKG had the same changes as in the morning. Dispatch Supervisor did not recommend any medical intervention at this time and was okay to discharge patient on Diltiazem 120 mg qday. Patient was counseled on abstaining from drug use given his myocardial bridging. At the time of discharge patient was stable enough to be discharged home. Discharge plan: ? Follow-up with primary care physician in 1 week ? Follow-up with concrete batch plant operator Dr. Mendenhall in 1 week ? We have tolerated on diltiazem 120 daily ?Please take Tylenol 650 every 6 hours for pain as needed ?Recommend to do lifestyle changes including changes in their diet, exercising, and abstaining from any smoking or drugs as you are prediabetic. ?We strongly encourages to stop using any type of drugs as this could be contributing to heart issues. ? Please come to the ER if symptoms persist or worsen. 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 Gomez and My senior Dr. Berger PGY3. Jose Parker PGY1 Status at Discharge Overall status at discharge: patient is progressing back to baseline Time Spent with Patient Time attestation: Total time spent providing and/or coordinating discharge services:>35 min Exam Vital Signs Temp Pulse Resp BP Pulse Ox O2 Del Method 97.0 F 87 16 104/69 97 Room Air 09/18/24 11:22 09/18/24 11:22 09/18/24 11:22 09/18/24 11:22 09/18/24 11:22 09/18/24 11:22 Narrative Exam General: A/O x3, no acute distress, thin Eyes: PERRL, EOMI. Anicteric, vision grossly intact. Ears: No ear pain, no ear discharge, Hearing grossly intact. Nose: No nasal discharge. Mouth/Throat: Dry mucous membranes, no redness, no lesions. Neck: Neck supple, non-tender, no cervical lymphadenopathy. Lungs: Clear SOL to auscultation and percussion, No accessory muscle use. Cardio: Normal S1/S2, regular rhythm, no murmurs, no JVD Abdomen: Soft, non-tender, no palpable masses, peristalsis present, no guarding or rebound. Extremities: Symmetrical, no significant deformities, no peripheral edema , non-tender, peripheral pulses presents. Skin: No rashes, no lesions, warm to touch. Neuro: No focal neurological deficits. motor and sensory intact Psych: Cooperative, appropriate mood and effect. Discharge Plan Plan Patient Disposition: HOME (Self Care) Care Plan Goals: ? Follow-up with primary care physician in 1 week ? Follow-up with concrete batch plant operator Dr. Mendenhall in 1 week ? We have tolerated on diltiazem 120 daily ?Please take Tylenol 650 every 6 hours for pain as needed ?Recommend to do lifestyle changes including changes in their diet, exercising, and abstaining from any smoking or drugs as you are prediabetic. ?We strongly encourages to stop using any type of drugs as this could be contributing to heart issues. ? Please come to the ER if symptoms persist or worsen. Prescriptions/Referrals Prescriptions/Med Rec: New diltiazem HCl 120 mg Capsule,Extended Release 24hr 120 mg PO QDAY Qty: 30 0RF Referrals: No Primary/Family,Physician [Primary Care Provider] - Willis Mendenhall MD [Physician] - Patient/Caregiver Discharge Instructions Discharge Activity: activity as tolerated Other Discharge Activity Instructions:: ? Follow-up with primary care physician in 1 week ? Follow-up with concrete batch plant operator Dr. Mendenhall in 1 week ? We have tolerated on diltiazem 120 daily ?Please take Tylenol 650 every 6 hours for pain as needed ?Recommend to do lifestyle changes including changes in their diet, exercising, and abstaining from any smoking or drugs as you are prediabetic. ?We strongly encourages to stop using any type of drugs as this could be contributing to heart issues. ? Please come to the ER if symptoms persist or worsen. Education Materials: Cardiac Catheterization Dc, Preventing Surgical Site Infections, Eating Heart-Healthy Foods, Procedural Sedation, Cardiac Cath Simon sradial Print Language: Scottish Stand Alone Forms: Alexa Award Info., Patient Portal Info Letter Discharge Order Discharge Orders: Discharge (Routine); Ordered 09/18/24 Ordered By: Duarte Berger Quality Discharge Quality Measures VTE prophylaxis Attestestation MD Attestation I have examined the patient, reviewed labs and imaging findings, discussed the case with the resident(s), and reviewed entered orders. I agree with the plan of care as outlined in this note. Dr. Gomez
== END 2024-09-18 11:24 | disposition home or self-care (01) | DRG 192 ==
LOC: SERX 10:16 → SERHOLD 10:18 → S2NX 13:23
PROVIDERS: Nurse Practitioner Family; Student in an Organized Health Care Education/Training Program; Admitting Provider Student in an Organized Health Care Education/Training Program; Emergency Provider Emergency Medicine; Visit Provider Student in an Organized Health Care Education/Training Program
DX: Q24.5 Malformation of coronary vessels (principal); E11.9 Type 2 diabetes mellitus without complications; E78.5 Hyperlipidemia, unspecified; I10 Essential (primary) hypertension; F15.90 Other stimulant use, unspecified, uncomplicated; I25.2 Old myocardial infarction; F17.200 Nicotine dependence, unspecified, uncomplicated; Z79.899 Other long term (current) drug therapy
CPT/HCPCS: 36415; 71045; 80053; 80061; 80307; 81001; 83036; 83615; 83735; 83880; 84100; 84484; 85025; 85610; 85730; 93005; 93306; 99152; 99285; A4216; A4649; C1887; C1894; J0171; J0461; J0583; J1643; J2250; J2270; J2310; J2371; J3010; J3490; Q9967; A9270; J2305